=== PATIENT | female | born 1960 | race Asian ===

== ENCOUNTER 2018-01-17 10:51 | Emergency (ER) | payer SELFPAY ==
[~2018-01-17] VITALS: Ht 149.9 cm; Wt 54.0 kg
[2018-01-17 11:02] VITALS: Ht 149.9 cm; Wt 54.0 kg
[2018-01-17 13:22] VITALS: BP 135/77
== END 2018-01-17 13:22 | disposition home or self-care (01) ==
LOC: ED 10:51
DX: S80.02XA Contusion of left knee, initial encounter (principal); S00.83XA Contusion of other part of head, initial encounter; W18.39XA Other fall on same level, initial encounter; Y93.89 Activity, other specified; Y92.89 Other specified places as the place of occurrence of the external cause; Y99.8 Other external cause status